=== PATIENT | female | born 1955 | race Caucasian/White ===

== ENCOUNTER 2024-03-04 15:10 | Emergency (ER) | payer OTHER, SELFPAY ==
[2024-03-04 15:17] VITALS: BP 156/102
--- NOTE | 2024-03-04 16:11 | ED.GENMED ---
History of Present Illness
<Brunilda Hernandez PA-C - Last Filed: 03/06/24 08:50>
General
Chief Complaint: Catheter/Tube Problem
Source: patient
Exam Limitations: none
Time Seen by Provider: 03/04/24 15:53
Nursing documentation reviewed up to this point in time: agreed with
History of Present Illness
History of Present Illness:
68 y/o F
with ho ALS
on hospice
here becuase her peg tube was pulled out by the visiting nurse who was going to replace with ADALBERTO-mondragon button but couldn't get it in
she had her original tube placed in apr 2023 at [place]
she has never been here before but brought her because the wait at [facility] is long
she has not had any vomiting, pain, fever.
pt is nonverbal and cannot swallow bcause of als
is historian
Past History
<Brunilda Hernandez PA-C - Last Filed: 03/06/24 08:50>
Past History
ED Past Medical History: Other (ALS)
Social History
Tobacco: Non-smoker
Alcohol: None
Review of Systems
<Brunilda Hernandez PA-C - Last Filed: 03/06/24 08:50>
Review of Systems
Allergies reviewed?: Yes
All Other Systems: Not applicable
Phy Exam
<Brunilda Hernandez PA-C - Last Filed: 03/06/24 08:50>
Physical Exam
Physical Exam:
GENERAL: Alert , in no apparent distress, ALS
EYE: pupils equal and reactive
NECK: Supple
ENT: o/p clr, mmm.
CARDIAC: Regular rate and rhythm .
LUNGS: Clear breath sounds bilaterally, no acute respiratory distress, no wheezes/rales/rhonchi
ABDOMEN: Soft, flat
PEG stoma normal no drainage nno surroundigng erythema, no distensino
without focal tenderness, no r/g, no cvat, normal bowel sounds
NEUROLOGICAL: alert; ALS - speech difficulty but baseline
moving extremities
SKIN: Warm and dry, skin intact.
MUSCULOSKELETAL: No edema, well perfused. neg sven's sign
PSYCH: Normal and appropriate interaction.
Course
<Brunilda Hernandez PA-C - Last Filed: 03/06/24 08:50>
Orders/Labs/Results
Orders:
Orders
03/04/24 16:57
Tube Check [CR Cont Inj Eval Tube(by Rad)] Urgent
Comment:
Reason For Exam: tube check
Vital Signs
Initial and Last Documented VS:
Initial Vital Signs
Temp Pulse Resp BP Pulse Ox
98.3 F 70 20 156/102 99
03/04/24 15:17 03/04/24 15:17 03/04/24 15:17 03/04/24 15:17 03/04/24 15:17
Last Documented Vital Signs
Temp Pulse Resp BP Pulse Ox
98.3 F 70 20 156/102 99
03/04/24 15:17 03/04/24 15:17 03/04/24 15:17 03/04/24 15:17 03/04/24 15:17
<Du Cosme PA-C - Last Filed: 03/07/24 07:16>
Orders/Labs/Results
Orders:
Orders
03/04/24 16:57
Tube Check [CR Cont Inj Eval Tube(by Rad)] Urgent
Comment:
Reason For Exam: tube check
Vital Signs
Initial and Last Documented VS:
Initial Vital Signs
Temp Pulse Resp BP Pulse Ox
98.3 F 70 20 156/102 99
03/04/24 15:17 03/04/24 15:17 03/04/24 15:17 03/04/24 15:17 03/04/24 15:17
Last Documented Vital Signs
Temp Pulse Resp BP Pulse Ox
98.3 F 70 20 156/102 99
03/04/24 15:17 03/04/24 15:17 03/04/24 15:17 03/04/24 15:17 03/04/24 15:17
Procedures
<Brunilda Hernandez PA-C - Last Filed: 03/06/24 08:50>
Other
Indication for procedure:: PEG tube out
Procedure completed by: brunilda hernandez pa-c
Consent form signed: No
If no, reason: Emergency procedure
Additional Procedure:
#18 FPEG PLACED
<Brunilda Hernandez PA-C - Last Filed: 03/06/24 08:50>
MDM/Problems Addressed
Differential Diagnosis Includes:
PEG dislodgement
MDM/Problems Addressed:
68 yo F
als
requiring peg
tried to have it replaced at home via RN but unable to place the adalberto-mondragon button
so she is here for PEG tube replacement
initially difficult to pass 18 which was used previously
able to pass 16 and then removed and placed 18 more easily
gastrograffin study to confirm indep reviewed
<Brunilda Hernandez PA-C - Last Filed: 03/06/24 08:50>
*Critical Care Note
Total Time (30-74mins, 75-104mins- exclusive of procedures): Not Applicable
<Du Cosme PA-C - Last Filed: 03/07/24 07:16>
Update Note
Update Note:
Care of patient assumed at shift change from Krysten Hernandez PA-C pending x-rays for confirmation of tube placement. At 1800 I reviewed x-rays showing adequate placement with contrast in the stomach. Patient will be discharged
ED Attending Note
<Brunilda Hernandez PA-C - Last Filed: 03/06/24 08:50>
-
Portions of this chart may have been created with voice recognition software.� Occasional wrong word or��sound alike� substitutions may have occurred due to the inherent limitations of voice recognition software.
Discharge Plan
Departure
Patient Disposition: Home (Routine Discharge)
Date of Disposition: 03/04/24
Time of Disposition: 18:08
Patient with high blood pressure during this ER visit?: No
Discharge Problem:
peg tube replacement, Complaint associated with gastric tube
Instructions: How to Care for Your Gastrostomy Tube
Referrals:
Stephanie Obrien, DO [Family Provider] - Follow up in 2-3 days
Activity Restrictions/Additional Instructions:
WE REPLACE THE G TUBE
RETURN FOR ANY CONCERNS.
Interventions
Interventions:
*Risk Screen - Suicide Last Done: 03/04/24 15:13
*General Assessment Last Done: 03/04/24 15:17
*Nursing Disposition Last Done: 03/04/24 18:15
[facility] Assessment Last Done: 03/04/24 16:31
Discharge Date and Time
Discharge Date/Time: 03/04/24 18:15
Print Language: AZERI
== END 2024-03-04 18:15 | disposition home or self-care (01) ==
LOC: EMR 15:10
PROVIDERS: EMERGENCY PHYSICIAN Emergency Medicine; FAMILY PHYSICIAN Internal Medicine
DX: Z43.1 Encounter for attention to gastrostomy (principal); G12.21 Amyotrophic lateral sclerosis
CPT/HCPCS: 99283; 43762; 49465